=== PATIENT | male | born 1990 | race Caucasian/White ===

== ENCOUNTER 2024-02-29 12:46 | Emergency (ER) | payer SELFPAY ==
[2024-02-29 12:49] VITALS: BP 110/64; BMI 21.8
[2024-02-29 13:08] VITALS: BP 122/61
[2024-02-29 13:19] VITALS: BMI 21.7
[2024-02-29] MEDS: NSS 1000 IV (13:34)
[2024-02-29 13:45] LABS: % Basophils 0.2 % (0-2); % Eosinophils 0.1 % (0-6); % Immature Granulocytes 0.4 % (0-0.5); % Lymphocytes 10.8 % (20.5-51.1); % Monocytes 5.2 % (1.7-9.3); % Neutrophils 83.3 % (42.2-75.2); Absolute Lymphocytes 0.9 10^3/uL (1.2-3.4); Absolute Monocytes 0.4 10^3/uL (0.1-0.6); Hematocrit 38.7 % (39.0-52.0); Hemoglobin 13.8 g/dL (13.0-18.0); Mean Corp Hgb Conc. 35.7 g/dL (33.0-37.0); Mean Corpuscular Hgb 31.1 pg (27.0-31.0); Mean Corpuscular Volume 87.2 fL (80.0-94.0); Mean Platelet Volume 9.4 fL (7.4-10.4); Nucleated Red Blood Cells % 0 % (-); Platelet Count 226 10^3/uL (130-400); Red Blood Cell Count 4.44 10^6/uL (4.70-6.10); Red Cell Dist. Width 11.9 % (11.5-14.5); White Blood Cell Count 8.4 10^3/uL (4.8-10.8)
--- NOTE | 2024-02-29 13:51 | ED.GENMED ---
History of Present Illness
General
Chief Complaint: Hyper/Hypo Thermia Problem
Time Seen by Provider: 02/29/24 13:06
History of Present Illness
History of Present Illness:
33-year-old male presenting to the emergency department with concern of bradycardia. Patient is currently trying to detox off of Kratom. He had his first outpatient session today, was administered 2 mg of Subutex followed by 4 mg an additional 4
mg of Subutex. He subsequently started to feel diaphoretic and nauseous. He was lying on the floor because he felt he was going to pass out. I checked his vital signs and his heart rate was very low, prompting them to bring him to the hospital.
Patient denies any known underlying history of bradycardia, however believes that he was told in the past that his heart rate was low. He notes that now he is presently feeling better, denies chest pain, difficulty breathing, weakness, numbness or
tingling to his extremities. Denies any additional drug use. Denies additional acute medical complain
Past History
Past History
ED Past Medical History: None
ED Past Surgical History: None
Social History
Tobacco: Non-smoker
Alcohol: None
Phy Exam
Physical Exam
Physical Exam:
General: Well-appearing, no clinical signs of dehydration, nontoxic and in no acute distress
HEENT: protecting airway
Neck: appears supple
CV: Bradycardic, regular rhythm, no evidence of cyanosis
Resp: No accessory muscle use, no increased work of breathing, lungs clear to auscultation bilaterally
Abd: Soft and non-distended, no tenderness to palpation, normal bowel sounds
Extremities: No deformities, no swelling, no erythema, pulses and sensation intact
Neuro: alert, no focal neurologic deficit
: deferred
Rectal: deferred
Psych: Normal affect
Skin: Intact
Course
Orders/Labs/Results
Orders:
Orders
02/29/24 13:04
EKG [Electrocardiogram (*1)] Urgent
Reason for Study: Bradycardia / Tachycardia
EKG- Treatment ONCE
02/29/24 13:23
0.9% Sodium Chloride 1000 ml [Nss] 1,000 ml IV BOLUS
02/29/24 13:28
Complete Blood Count/With Diff Urgent
Comprehensive Metabolic Panel Urgent
Magnesium Urgent
TSH Urgent
Troponin I Urgent
Abnormal Lab Results
02/29/24
13:28
RBC 4.44 L 10^6/uL
(4.70-6.10)
Hct 38.7 L %
(39.0-52.0)
MCH 31.1 H pg
(27.0-31.0)
Absolute Neuts (auto) 7.0 H 10^3/uL
(1.4-6.5)
Absolute Lymphs (auto) 0.9 L 10^3/uL
(1.2-3.4)
Neutrophils % 83.3 H %
(42.2-75.2)
Lymphocytes % 10.8 L %
(20.5-51.1)
02/29/24 13:28
02/29/24 13:28
Vital Signs
Initial and Last Documented VS:
Initial Vital Signs
Temp Pulse Resp BP Pulse Ox
94.8 F L 55 24 110/64 100
02/29/24 12:49 02/29/24 12:49 02/29/24 12:49 02/29/24 12:49 02/29/24 12:49
Last Documented Vital Signs
Temp Pulse Resp BP Pulse Ox
93.3 F L 40 16 116/51 98
02/29/24 12:52 02/29/24 14:30 02/29/24 14:30 02/29/24 14:00 02/29/24 14:30
MDM/Problems Addressed
MDM/Problems Addressed:
33-year-old male with history of Kratom abuse presenting for bradycardia after outpatient treatment with Subutex. Vital signs on arrival significant for bradycardia and hypothermia, however on recheck, normal temperature.
On exam, patient well-appearing, asymptomatic. EKG confirms sinus bradycardia. No signs of heart block. Possibly medication reaction versus underlying history of bradycardia. On review of EMR, patient did have a hospital visit in 2018, heart
rate at that time was 58. Blood pressure otherwise is stable. No focal neurologic deficits. Will screen with laboratory analysis and administer IV fluids in the setting of volume depletion and continued close monitoring
15:15 -patient's labs are unremarkable. On reassessment, remains stable. Heart rate is in the 50s. Patient ambulated, heart rate in the 70s. At this time without concern for acute cardiac issues. Again suspect patient had a medication issue
prior to arrival, likely became hypotensive after Suboxone. Advised discussing with his treatment team regarding dosage of the Suboxone, will likely require lower dosage. Will provide cardiology follow-up. Otherwise feel stable for discharge.
Return precautions discussed and patient verbalized understanding
*EKG
Interpreted by ED Provider?: Yes
EKG Intrepretation Date: 02/29/24
EKG Intrepretation Time: 14:01
Interpretation: normal
Comparison EKG: no comparison EKG present
Heart Rate: 41
Rate: bradycardiac
Rhythm: sinus
[place]: normal axis
Interval: normal interval
QRS Pattern: normal QRS
Ischemia: no ischemia
*Critical Care Note
Total Time (30-74mins, 75-104mins- exclusive of procedures): Not Applicable
ED Attending Note
-
Portions of this chart may have been created with voice recognition software.� Occasional wrong word or��sound alike� substitutions may have occurred due to the inherent limitations of voice recognition software.
Discharge Plan
Departure
Prescriptions:
No Action
sulfamethoxazole-trimethoprim 1 TABLET tablet
1 tab PO BID Qty: 14 0RF
cephalexin 500 MG capsule
500 mg PO QID Qty: 28 0RF
hydrocodone-acetaminophen 1 TABLET tablet
1 tab PO Q4HPRN PRN (Reason: pain) Qty: 10 0RF
Referrals:
Gigi Barlow, DO [Family Provider] -
Interventions
Interventions:
*Risk Screen - Suicide Last Done: 02/29/24 12:49
*Neglect/Abuse Screening Last Done: 02/29/24 12:49
ED- Fall Risk Assessment Last Done: 02/29/24 12:49
*ED COVID-19 Vaccine History Last Done: 02/29/24 13:22
ED- Neurological Assessment Last Done: 02/29/24 13:23
ED-Skin Assessment Last Done: 02/29/24 13:23
Discharge Date and Time
Print Language: ICELANDIC
[2024-02-29 13:56] LABS: ALT (SGPT) 21 U/L (0-50); AST (SGOT) 28 U/L (17-59); Alkaline Phosphatase 90 U/L (38-126); Blood Urea Nitrogen 15 mg/dl (9-20); Calcium 9.5 mg/dl (8.4-10.2); Carbon Dioxide 28 mmol/L (22-30); Chloride 102 mmol/L (98-107); Estimated Creatinine Clearance > 125 ml/min; Glucose 94 mg/dl (70-99); Magnesium 1.9 mg/dl (1.6-2.3); Potassium 4.3 mmol/L (3.5-5.1); Sodium 138 mmol/L (135-145); Total Bilirubin 0.6 mg/dl (0.2-1.3); Total Protein 7.3 g/dl (6.3-8.2); eGFR > 60.00
[2024-02-29 14:00] VITALS: BP 116/51
[2024-02-29 14:06] LABS: Troponin I < 0.012 ng/ml
[2024-02-29 14:27] LABS: TSH 0.48 uIU/ml (0.47-4.68)
[2024-02-29 15:00] VITALS: BP 114/61
[2024-02-29 15:16] VITALS: BP 104/59
== END 2024-02-29 15:47 | disposition home or self-care (01) ==
LOC: EMR 12:46
PROVIDERS: EMERGENCY PHYSICIAN Student in an Organized Health Care Education/Training Program; FAMILY PHYSICIAN Family Medicine
DX: R55 Syncope and collapse (principal); R00.1 Bradycardia, unspecified
CPT/HCPCS: 99284; 96360; 80053; 83735; 84443; 84484; 85025; 93005

== ENCOUNTER 2024-03-12 19:12 | Emergency (ER) | payer SELFPAY ==
[2024-03-12 19:13] VITALS: BMI 21.7
[2024-03-12 19:16] VITALS: BP 79/32
[2024-03-12 19:27] VITALS: BP 98/60
[2024-03-12 19:30] VITALS: BP 109/65
[2024-03-12 19:30] LABS: % Basophils 0.4 % (0-2); % Eosinophils 0.5 % (0-6); % Immature Granulocytes 0.3 % (0-0.5); % Lymphocytes 13.6 % (20.5-51.1); % Monocytes 8.3 % (1.7-9.3); % Neutrophils 76.9 % (42.2-75.2); Absolute Eosinophils 0.1 10^3/uL (0-0.7); Absolute Lymphocytes 1.3 10^3/uL (1.2-3.4); Absolute Monocytes 0.8 10^3/uL (0.1-0.6); Absolute Neutrophils 7.2 10^3/uL (1.4-6.5); Hematocrit 40.4 % (39.0-52.0); Hemoglobin 14.5 g/dL (13.0-18.0); Mean Corp Hgb Conc. 35.9 g/dL (33.0-37.0); Mean Corpuscular Hgb 30.9 pg (27.0-31.0); Mean Platelet Volume 8.8 fL (7.4-10.4); Nucleated Red Blood Cells % 0 % (-); Platelet Count 239 10^3/uL (130-400); Red Cell Dist. Width 11.6 % (11.5-14.5); White Blood Cell Count 9.4 10^3/uL (4.8-10.8)
[2024-03-12 20:00] VITALS: BP 99/55
[2024-03-12 20:03] LABS: ALT (SGPT) 179 U/L (0-50); AST (SGOT) 85 U/L (17-59); Alkaline Phosphatase 84 U/L (38-126); Blood Urea Nitrogen 11 mg/dl (9-20); Calcium 9.5 mg/dl (8.4-10.2); Carbon Dioxide 24 mmol/L (22-30); Chloride 101 mmol/L (98-107); Estimated Creatinine Clearance 121 ml/min; Glucose 107 mg/dl (70-99); Potassium 4.2 mmol/L (3.5-5.1); Sodium 136 mmol/L (135-145); Total Bilirubin 0.7 mg/dl (0.2-1.3); Total Protein 7.5 g/dl (6.3-8.2); eGFR > 60.00
[2024-03-12 20:06] LABS: Troponin I < 0.012 ng/ml
[2024-03-12] MEDS: NSS 1000 IV (20:07)
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
[2024-03-12 20:30] VITALS: BP 103/53
[2024-03-12 20:39] LABS: D-Dimer < 0.27 ug/mlFEU (0.00-0.50)
== END 2024-03-12 21:00 | disposition home or self-care (01) ==
LOC: EMR 19:12
PROVIDERS: Emergency Medicine; EMERGENCY PHYSICIAN Student in an Organized Health Care Education/Training Program
DX: R55 Syncope and collapse (principal); R00.1 Bradycardia, unspecified; F19.10 Other psychoactive substance abuse, uncomplicated; Z73.3 Stress, not elsewhere classified
CPT/HCPCS: 99284; 96360; 80053; 84484; 85025; 85379; 93005